=== PATIENT | female | born 2000 | race Caucasian/White ===

== ENCOUNTER 2020-07-19 17:44 | Emergency (ER) | payer OTHER ==
[2020-07-19] MEDS ORDERED: SODIUM CHLORIDE 0.9% 1000ML 1,000 ML IVS PRN (18:02)
--- NOTE | 2020-07-19 19:21 | ED.PDOC ---
History of Present Illness - General Chief Complaint: General Stated Complaint: tremors, headache, visual disturbances Time Seen by Provider: 07/19/20 18:02 - History of Present Illness Initial Comments: 19 yo F presents with the cc of "I almost had a seizure but I stopped it" patient states she was recently started on zoloft three days ago. She read that one of the side effects is seizure. patient states her hands got clammy and she felt like she had tunnel vision. Denies shortness of breath or chest pain. Denies increase anxiety, but states she has PTSD, depression and OCD. Her friend who has seizures told her to focus on something positive and take deep breaths. She did this and her symptoms went away. Did not hit head no LOC, no ams, no postictal state, did not bite tongue. no loss urine/bowel Allergies/Adverse Reactions: Allergies NO KNOWN ALLERGY Allergy (Verified 07/19/20 18:09) Home Medications: Ambulatory Orders Aspirin/Acetaminophen/Caffeine [Excedrin Migraine] 1 tab PO 07/19/20 Sertraline HCl PO DAILY 07/19/20 Review of Systems - Review of Systems Constitutional: Denies: fever, malaise EENTM: States: see HPI. Denies: ear pain, throat pain, mouth pain Respiratory: Denies: cough, orthopnea, short of breath, stridor Cardiology: Denies: chest pain, edema, palpitations, syncope Gastrointestinal/Abdominal: Denies: abdominal pain, constipation, diarrhea, nausea, vomiting Genitourinary: Denies: discharge, dysuria, frequency, hematuria, pain Musculoskeletal: Denies: back pain, joint pain, joint swelling, muscle pain Skin: Denies: change in color, rash Neurological: States: emotional problems, paresthesia - resolved. Denies: anxiety, headache, numbness, seizure, tingling, tremors, weakness Endocrine: Denies: excessive sweating, unexplained weight gain, unexplained weight loss Hematologic/Lymphatic: Denies: anemia, blood clots, easy bleeding, easy bruising Past Medical History (General) - Patient Medical History Hx Seizures: No Hx Stroke: No Hx Dementia: No Hx Asthma: No Hx of COPD: No Hx Cardiac Disorders: No Hx Congestive Heart Failure: No Hx Pacemaker: No Hx Hypertension: No Hx Thyroid Disease: No Hx Diabetes: No Hx Gastroesophageal Reflux: No Hx Renal Disease: No Hx Cancer: No Hx of HIV: No Hx Hepatitis C: No Hx MRSA: No - Vaccination History Hx Tetanus, Diphtheria Vaccination: No Hx Influenza Vaccination: Yes - Social History Hx Tobacco Use: No Hx Alcohol Use: Yes Hx Substance Use: No Hx Substance Use Treatment: No Hx Depression: Yes Family Medical History - Family History Mother Family History: Unknown Living Status: Unknown Physical Exam - Physical Exam General Appearance: Alert, Comfortable, No apparent distress, Well Developed, Well Groomed, Well Hydrated, Well Nourished Eye Exam: bilateral normal Ears, Nose, Throat: hearing grossly normal, normal ENT inspection, normal pharynx Neck: non-tender, full range of motion, supple, normal inspection Respiratory: chest non-tender, lungs clear, normal breath sounds, no respiratory distress, no accessory muscle use Cardiovascular/Chest: normal peripheral pulses, regular rate, rhythm, no edema, no gallop, no JVD, no murmur Peripheral Pulses: radial,right: 2+, radial,left: 2+, dorsalis pedis,right: 2+, dorsalis pedis,left: 2+ Gastrointestinal/Abdominal: normal bowel sounds, non tender, soft, no organomegaly, no pulsatile mass Rectal Exam: deferred Back Exam: normal inspection, no CVA tenderness, no vertebral tenderness Extremity: normal range of motion, non-tender, normal inspection, no pedal edema, no calf tenderness, normal capillary refill Neurologic: document 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 Skin Exam: normal color, warm/dry Lymphatic: no adenopathy Progress - Progress Progress: 07/19/20 19:21 I feel that this was more of a panic disorder than seizure. I told patient and mom that when intitally starting ssri it can worsen anxiety, but intermission coordinator it has been shown to help. I advised patient to stop taking medicine until she talks to her pcp. EKG shows HR 71, NSR, normal ekg. Blood work shows mildly low K, otherwise cbc and cmp unremarkable. CT head unr emarkable. patient on her menstrual cycle, recommend follow up on urine when she is not on menstrual cycle. The data reviewed when caring for this patient included: nurse notes, prior records, etc. The history and assessments from nurses notes were reviewed and considered, and the patient's home medication list was also reviewed and considered. My assessment and the results of testing completed here in the ED were discussed with the patient/family. All questions were answered, and they express understanding of my assessment and the plan. They have been instructed to return if their symptoms worsen, and have been asked to follow up with their primary care physician to recheck today's presenting complaint. Jayna Sen DO #[id number] 07/19/20 18:15 EKG STAT 07/19/20 19:59 Discharge Stat Laboratory Results WBC 9.1 K/mm3 (4.8-10.8) 07/19/20 18:13 RBC 4.60 M/mm3 (4.20-5.40) 07/19/20 18:13 Hgb 13.8 gm/dL (12.0-16.0) 07/19/20 18:13 Hct 39.5 % (36.0-47.0) 07/19/20 18:13 MCV 86.0 fl (81.0-99.0) 07/19/20 18:13 MCH 30.0 pg (27.0-31.0) 07/19/20 18:13 MCHC 34.8 g/dL (33.0-37.0) 07/19/20 18:13 RDW 14.1 % (11.5-14.5) 07/19/20 18:13 Plt Count 299 K/mm3 (130-400) 07/19/20 18:13 MPV 8.0 fl (7.40-10.4) 07/19/20 18:13 Absolute Neuts (auto) 7.80 K/uL (1.8-6.8) H 07/19/20 18:13 Absolute Lymphs (auto) 0.70 K/uL (1.0-3.4) L 07/19/20 18:13 Absolute Monos (auto) 0.50 K/uL (0.2-0.8) 07/19/20 18:13 Absolute Eos (auto) 0.00 K/uL (0.0-0.4) 07/19/20 18:13 Absolute Basos (auto) 0.00 K/uL (0.0-0.1) 07/19/20 18:13 Neutrophils % 85.7 % (42.0-78.0) H 07/19/20 18:13 Lymphocytes % 7.9 % (20.0-50.0) L 07/19/20 18:13 Monocytes % 5.8 % (2.0-9.0) 07/19/20 18:13 Eosinophils % 0.2 % (1.0-5.0) L 07/19/20 18:13 Basophils % 0.4 % (0.0-2.0) 07/19/20 18:13 Sodium 136 mmol/L (135-145) 07/19/20 18:13 Potassium 3.2 mmol/L (3.6-5.0) L 07/19/20 18:13 Chloride 105 mmol/L (101-111) 07/19/20 18:13 Carbon Dioxide 22 mmol/L (21-31) 07/19/20 18:13 Anion Gap 12.2 (12-18) 07/19/20 18:13 BUN 8 mg/dL (7-18) 07/19/20 18:13 Creatinine 0.57 mg/dL (0.6-1.3) L 07/19/20 18:13 BUN/Creatinine Ratio 14.0 (10-20) 07/19/20 18:13 Random Glucose 150 mg/dL (70-105) H 07/19/20 18:13 Serum Osmolality 273.2 mOsm/L (275-295) L 07/19/20 18:13 Calcium 8.8 mg/dL (8.4-10.2) 07/19/20 18:13 Total Bilirubin 0.7 mg/dL (0.2-1.0) 07/19/20 18:13 AST 24 IU/L (10-42) 07/19/20 18:13 ALT 27 IU/L (10-60) 07/19/20 18:13 Alkaline Phosphatase 62 IU/L (42-121) 07/19/20 18:13 Serum Total Protein 7.8 gm/dL (6.4-8.2) 07/19/20 18:13 Albumin 4.2 g/dl (3.2-5.5) 07/19/20 18:13 Globulin 3.6 gm/dL (2.3-3.5) H 07/19/20 18:13 Albumin/Globulin Ratio 1.2 (1.1-1.9) 07/19/20 18:13 Serum HCG, Qual Negative (NEGATIVE) 07/19/20 18:02 Urine Color Yellow (Yellow) 07/19/20 18:33 Urine Appearance Clear (Clear) 07/19/20 18:33 Urine pH 7.0 (4.5-7.8) 07/19/20 18:33 Ur Specific [place] 1.010 (1.005-1.030) 07/19/20 18:33 Urine Protein Negative mg/dL 07/19/20 18:33 Urine Glucose (UA) Negative mg/dL (Negative) 07/19/20 18:33 Urine Ketones Negative mg/dL (NEGATIVE) 07/19/20 18:33 Urine Blood Large (Negative) H 07/19/20 18:33 Urine Nitrite Negative 07/19/20 18:33 Urine Bilirubin Negative (NEGATIVE) 07/19/20 18:33 Urine Urobilinogen 0.2 mg/dL (0.2-1.0) 07/19/20 18:33 Ur Leukocyte Esterase Small (Negative) H 07/19/20 18:33 Urine RBC 3-5 /hpf H 07/19/20 18:33 Urine WBC 5-10 /hpf H 07/19/20 18:33 Ur Epithelial Cells 3-5 /hpf 07/19/20 18:33 Urine Bacteria Rare 07/19/20 18:33 07/19/20 22:59 07/19/20 23:01 - EKG/XRAY/CT CT Ordered: Yes CT Interpretation Call Back: No Departure - Departure Clinical Impression: Anxiety, Hypokalemia ICD-10 Supporting Text: adverse reaction to drug Time of Disposition: 19:59 Disposition: Discharge to Home or Self Care Condition: Good Departure Forms: ED Discharge - Pt. Copy, Patient Portal Self Enrollment Instructions: Panic Disorder, Hypokalemia, Anxiety, Adult (DC) Referrals: XAVIER MUELLER [Primary Care Provider] - 1-2 Days Home Medications: Ambulatory Orders Aspirin/Acetaminophen/Caffeine [Excedrin Migraine] 1 tab PO 07/19/20 Sertraline HCl PO DAILY 07/19/20
--- NOTE | 2020-07-19 19:49 | CT ---
PROCEDURE: Head CLINICAL HISTORY: 19 years Female seizure COMPARISON: None. TECHNIQUE: Contiguous axial CT images obtained through the brain without IV contrast. This exam was performed according to our department optimization program which includes automated exposure control, adjustment of the mA and/or kv according to patient size and/or use of iterative reconstruction technique. FINDINGS: The ventricles and sulci appear unremarkable. No abnormal areas of decreased density are identified. No mass lesions. No acute hemorrhage. No fluid or significant mucosal thickening in the visualized paranasal sinuses. No depressed calvarial fractures. IMPRESSION: No acute intracranial abnormality is identified. Electronically signed by: Jw Mcqueen MD 07/19/2020 7:48 PM CDT
[2020-07-19 20:21] VITALS: BP 105/75; TEMP 98.1; O2SAT 97
== END 2020-07-19 20:10 | disposition home or self-care (01) ==
LOC: ER 17:44
DX: F41.9 Anxiety disorder, unspecified (principal); E87.6 Hypokalemia; R20.0 Anesthesia of skin; R25.1 Tremor, unspecified; F43.10 Post-traumatic stress disorder, unspecified; F32.9 Major depressive disorder, single episode, unspecified; F42.9 Obsessive-compulsive disorder, unspecified; Z79.899 Other long term (current) drug therapy
CPT/HCPCS: 36415; 70450; 80053; 81001; 84703; 85025; 87086; 93005; J7030